=== PATIENT | female | born 1995 | race Caucasian/White ===

== ENCOUNTER 2018-04-17 11:52 | Inpatient (IN) | payer OTHER ==
[~2018-04-17] VITALS: Ht 162.6 cm; Wt 79.4 kg
[~2018-04-17 11:52] MED LIST: ALBUTEROL2.5 MG/3 M IH; PHENERGAN25 MG PO; PRENATAL + DHA1 EAC1; ZYNCOF 20-400120 ML PO; ZYRTEC10 M3 PO
[2018-04-17] MEDS ORDERED: PRENATAL TABLE1 EAC1 PO (16:39)
== END 2018-04-20 10:16 | disposition home or self-care (01) | DRG 780 ==
LOC: OBS/DEL 11:52 → LDR 14:48 → OB/GYN 04-18 15:48
PROC: BY4FZZZ Ultrasonography of Third Trimester, Single Fetus (ICD-10-PCS; principal; 2018-04-17)
PROC: 4A1HXCZ Monitoring of Products of Conception, Cardiac Rate, External Approach (ICD-10-PCS; 2018-04-17)
DX: O47.03 False labor before 37 completed weeks of gestation, third trimester (principal)

== ENCOUNTER 2018-05-06 13:37 | Outpatient (CLI) | payer OTHER ==
[~2018-05-06 13:37] MED LIST changes: +PRENATAL TABLE1 EAC1 PO
== END 2018-05-06 15:30 | disposition home or self-care (01) ==
LOC: OBS/DEL 13:37
DX: O47.1 False labor at or after 37 completed weeks of gestation (principal); Z34.03 Encounter for supervision of normal first pregnancy, third trimester

== ENCOUNTER 2018-05-15 22:21 | Outpatient (CLI) | payer OTHER | END 2018-05-16 02:00 | disposition still patient (30) | LOC: OBS/DEL 22:21 | DX: O47.1 False labor at or after 37 completed weeks of gestation (principal); Z34.83 Encounter for supervision of other normal pregnancy, third trimester ==

== ENCOUNTER 2018-05-16 02:06 | Inpatient (IN) | payer OTHER ==
[~2018-05-16] VITALS: Ht 162.6 cm; Wt 82.1 kg
== END 2018-05-18 11:44 | disposition home or self-care (01) | DRG 775 ==
LOC: LDR 02:06 → OB/GYN 02:06 → LDR 05-17 09:33 → OB/GYN 05-17 14:57
PROC: 10E0XZZ Delivery of Products of Conception, External Approach (ICD-10-PCS; principal; 2018-05-16)
PROC: 0HQ9XZZ Repair Perineum Skin, External Approach (ICD-10-PCS; 2018-05-16)
PROC: 3E033VJ Introduction of Other Hormone into Peripheral Vein, Percutaneous Approach (ICD-10-PCS; 2018-05-16)
PROC: 4A033R1 Measurement of Arterial Saturation, Peripheral, Percutaneous Approach (ICD-10-PCS; 2018-05-16)
PROC: 4A1HXCZ Monitoring of Products of Conception, Cardiac Rate, External Approach (ICD-10-PCS; 2018-05-16)
DX: O70.0 First degree perineal laceration during delivery (principal); Z3A.39 39 weeks gestation of pregnancy; Z37.0 Single live birth

== ENCOUNTER 2018-11-06 18:33 | Inpatient (IN) | payer OTHER ==
[~2018-11-06] VITALS: Ht 162.6 cm; Wt 78.0 kg
== END 2018-11-08 10:03 | DRG 833 ==
LOC: ER 18:33 → SEC-K 23:36 → OB/GYN 23:36
PROVIDERS: Obstetrics & Gynecology; ADMIT Obstetrics & Gynecology
PROC: BW24ZZZ Computerized Tomography (CT Scan) of Chest and Abdomen (ICD-10-PCS; 2018-11-07)
PROC: 10D07Z8 Extraction of Products of Conception, Other, Via Natural or Artificial Opening (ICD-10-PCS; principal; 2018-11-07 09:00)
DX: O02.0 Blighted ovum and nonhydatidiform mole (principal); E05.80 Other thyrotoxicosis without thyrotoxic crisis or storm

== ENCOUNTER 2020-09-18 14:08 | Emergency (ER) | payer OTHER ==
[~2020-09-18] VITALS: Ht 162.6 cm; Wt 84.8 kg
[2020-09-18] MEDS ORDERED: PRENA1 TRUE CO1 EACH (14:18)
== END 2020-09-18 17:37 | disposition home or self-care (01) ==
LOC: ER 14:08
DX: O43.891 Other placental disorders, first trimester (principal); O26.851 Spotting complicating pregnancy, first trimester; O36.80X0 Pregnancy with inconclusive fetal viability, not applicable or unspecified; Z3A.08 8 weeks gestation of pregnancy

== ENCOUNTER → 2020-10-14 | Outpatient (CLI) | payer OTHER ==
[~2020-10-14] MED LIST changes: +PRENA1 TRUE CO1 EACH
== END | disposition home or self-care (01) ==
LOC: PRENATAL 10:44
PROVIDERS: ATTEND Obstetrics & Gynecology Maternal & Fetal Medicine
DX: Z36.89 Encounter for other specified antenatal screening (principal); O36.80X1 Pregnancy with inconclusive fetal viability, fetus 1; Z3A.12 12 weeks gestation of pregnancy

== ENCOUNTER → 2020-11-26 | Outpatient (CLI) | payer OTHER | END | disposition home or self-care (01) | LOC: PRENATAL 09:59 | PROVIDERS: ATTEND Obstetrics & Gynecology Maternal & Fetal Medicine | DX: O35.0XX1 Maternal care for (suspected) central nervous system malformation in fetus, fetus 1 (principal); O35.3XX1 Maternal care for (suspected) damage to fetus from viral disease in mother, fetus 1; O98.512 Other viral diseases complicating pregnancy, second trimester; Z36.89 Encounter for other specified antenatal screening; Z3A.19 19 weeks gestation of pregnancy ==

== ENCOUNTER 2020-12-31 20:25 | Emergency (ER) | payer OTHER ==
[~2020-12-31] VITALS: Ht 162.6 cm; Wt 81.6 kg
== END 2020-12-31 22:05 | disposition home or self-care (01) ==
LOC: ER 20:25
DX: O26.892 Other specified pregnancy related conditions, second trimester (principal); R51.9 Headache, unspecified; Z3A.23 23 weeks gestation of pregnancy

== ENCOUNTER 2021-04-16 05:57 | Inpatient (IN) | payer OTHER ==
[~2021-04-16] VITALS: Ht 162.6 cm; Wt 87.5 kg
== END 2021-04-18 12:57 | disposition home or self-care (01) | DRG 798 ==
LOC: OB/GYN 05:57 → LDR 05:57 → OB/GYN 16:34
PROVIDERS: ADMIT Obstetrics & Gynecology; ATTEND Obstetrics & Gynecology
PROC: 10E0XZZ Delivery of Products of Conception, External Approach (ICD-10-PCS; principal; 2021-04-16)
PROC: 0HQ9XZZ Repair Perineum Skin, External Approach (ICD-10-PCS; 2021-04-16)
PROC: 10907ZC Drainage of Amniotic Fluid, Therapeutic from Products of Conception, Via Natural or Artificial Opening (ICD-10-PCS; 2021-04-16)
PROC: 3E033VJ Introduction of Other Hormone into Peripheral Vein, Percutaneous Approach (ICD-10-PCS; 2021-04-16)
PROC: 4A1HXFZ Monitoring of Products of Conception, Cardiac Rhythm, External Approach (ICD-10-PCS; 2021-04-16)
PROC: 0UB70ZZ Excision of Bilateral Fallopian Tubes, Open Approach (ICD-10-PCS; 2021-04-17)
DX: O70.0 First degree perineal laceration during delivery (principal); Z37.0 Single live birth; Z30.2 Encounter for sterilization; Z3A.38 38 weeks gestation of pregnancy; Z20.822 Contact with and (suspected) exposure to COVID-19